=== PATIENT | female | born 1955 | race Hispanic/Latino ===

== ENCOUNTER 2021-07-20 07:00 | Outpatient (CLI) | payer BC | END 2021-07-20 07:01 | disposition home or self-care (01) | LOC: BICULT 07:00 | PROVIDERS: ATTEND Family Medicine | DX: R94.5 Abnormal results of liver function studies (principal); K76.0 Fatty (change of) liver, not elsewhere classified | CPT/HCPCS: 76700 ==

== ENCOUNTER 2022-04-30 08:04 | Outpatient (CLI) | payer MEDICARE, OTHER | END 2022-04-30 08:05 | disposition home or self-care (01) | LOC: BICMAMMO 08:04 | PROVIDERS: ATTEND Family Medicine | DX: Z13.820 Encounter for screening for osteoporosis (principal); N95.9 Unspecified menopausal and perimenopausal disorder; M85.89 Other specified disorders of bone density and structure, multiple sites | CPT/HCPCS: 77080 ==